=== PATIENT | male | born 1945 | race Caucasian/White ===

== ENCOUNTER 2023-10-10 14:14 | Emergency (ER) | payer OTHER ==
[2023-10-10 14:43] VITALS: BP 164/94; PULSE 92; RESP 20; TEMP 98.8; BMI 17.9
== END 2023-10-10 17:09 | disposition left against medical advice (07) ==
LOC: FER 14:14
DX: R53.1 Weakness (principal); R26.81 Unsteadiness on feet
CPT/HCPCS: 70450-TC; 99284-25